=== PATIENT | female | born 1970 | race Caucasian/White ===

== ENCOUNTER 2020-06-12 07:44 | Outpatient (CLI) | payer OTHER ==
[2020-06-12] MEDS ORDERED: MELO15TA6 PO (08:23)
[2020-06-12] MEDS ORDERED: FEXO60TA24 PO (08:23)
== END 2020-06-12 23:59 | disposition home or self-care (01) ==
LOC: STAR 07:44
PROVIDERS: ATTEND Orthopaedic Surgery
DX: Z02.9 Encounter for administrative examinations, unspecified (principal)